=== PATIENT | female | born 1980 | race Caucasian/White ===

== ENCOUNTER 2016-08-01 08:42 | Inpatient (IN) | payer OTHER ==
[~2016-08-01] VITALS: Ht 162.6 cm; Wt 88.0 kg
[~2016-08-01 08:42] MED LIST: IBUPROFEN800 MG PO; PERCOCET 325 MG1 TA2 PO
[2016-08-01 09:19] LABS: ABSOLUTE BASOPHIL COUNT 0 /CUMM (0.0-0.2); ABSOLUTE EOSINOPHIL COUNT 0.1 /CUMM (0.0-0.7); ABSOLUTE GRANULOCYTE CT 5.7 /CUMM (1.4-6.5); ABSOLUTE LYMPH COUNT 3.1 /CUMM (1.2-3.4); ABSOLUTE MONOCYTE COUNT 0.6 /CUMM (0.10-0.60); BASOPHIL % 0.3 % (0.0-2.0); EOSINOPHIL % 0.9 % (0-5); GRANULOCYTE % 59.7 % (42.2-75.2); HEMATOCRIT 33.9 % (37-47); MEAN CORPUSCULAR HGB 28.6 PG (27.0-31.0); MEAN CORPUSCULAR HGB CONC 33.5 G/DL (33.0-37.0); MEAN CORPUSCULAR VOLUME 85.4 FL (81.0-99.0); MEAN PLATELET VOLUME 8.3 FL (7.4-10.4); PLATELET COUNT 245 /CUMM (130-400); RBC DISTRIBUTION WIDTH 15.1 % (11.5-14.5); RED BLOOD CELL CT 3.97 /CUMM (4.20-5.40); WHITE BLOOD CELL COUNT 9.6 /CUMM (4.8-10.8)
[2016-08-01 09:43] VITALS: BP 117/63
[2016-08-01] MEDS ORDERED: PRENATABS RX T1 EACH PO (09:44)
--- NOTE | 2016-08-01 10:54 | History & Physical ---
General Information and HPI MD Statement: I have seen and personally examined SUZIE LOPEZ and documented this H&P. The patient is a 35 year old female at [41] weeks and [2] days gestation who presented with a chief complaint of [post dates induction]. Source of Information: patient, old records Exam Limitations: no limitations History of Present Illness: 31 yo LMP 10/17/2015 and TAPAN of 07/23/2016 presents at 41 weeks 2/7 days for induction of labor. 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 1 oz. 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 Home Who Do You Live With? spouse, child, self Smoking Status: Former Smoker ETOH Use: denies use Illicit Drug Use: denies illicit drug use Review of Systems Review of Systems: Currently negative for cardiac pulmonary GI complaints Exam & Diagnostic Data Last 24 Hrs of Vital Signs/I&O Vital Signs Date Time Temp Pulse Resp B/P Pulse O2 O2 Flow FiO2 Ox Delivery Rate 08/01 0943 98.6 78 16 117/63 99% RA Intake & Output 08/01 1600 08/01 0800 08/01 0000 Intake Total Output Total Balance Patient 194 lb Weight Obstetric Exam Wgt Gained During : 5 Pelvimetry: Proven 7 lbs. 11 oz. Dilation (cm): 4 Effacement (%): 80 Station: -1 Membranes: intact Fluid: unknown Fundal Height (cm): 39 Multiple Gestation? No Contractions: None presently Infant #1 - FHR Baseline: 124 Category: 1 Estimated Weight: 8 lbs. 4 oz. Presentation: Vertex Patient for Induction? Yes Holliday Score Holliday Score Response Value Cervix Position: posterior 0 Cervix Consistency: soft 2 Cervix Effacement: >80% 3 Cervix Dilation: 3-4 cm 2 Cervix Station: -1 2 Total 9 Physical Exam General Appearance Alert, Oriented X3, Cooperative, No Acute Distress Skin No Rashes HEENT Atraumatic Neck Supple, No JVD Cardiovascular Regular Rate, Normal S1, Normal S2 Lungs Normal Air Movement Abdomen Normal Bowel Sounds, Soft, No Tenderness, No Hepatospenomegaly, fundal height 39 cm's, weight 8 lbs. 4 oz. heart rate 120s category 1 no palpable contractions Neurological Normal Gait, Normal Speech Extremities No Clubbing, No Cyanosis Reproductive (FEMALE) Normal female genitalia Labs Blood Type & Rh: O+ Antibody Screen: Negative Hct/Hgb & Platelets #1: 12.4/38.8 platelet count 349,000 Hct/Hgb & Platelets #2: 11.2/34.8 platelet count 235,000 Rubella: Immune VDRL #1: Negative VDRL #2: Negative HbsAg: Negative HIV #1: Negative HIV #2 Negative 1 Hr P 3 Hr PG: Not applicable Group B Strep: Negative Initial Ultrasound: Initial ultrasound 12/15/2015 single intrauterine 8 pounds 3 days TAPAN of 07/23/2016 Anatomy Ultrasound: 03/05/2020 1620 weeks 0/7 days normal anatomy negative aneuploidy scan, Ultrasound for EFW: 07/10/2016 41st percentile 6 pounds 15 ounces Genetic Testing: Patient declined first trimester screen declined maternal serum AFP. Also declined second trimester screening declined CVS and amniocentesis. With her anatomy scan at [facility] a 20 week she had a negative aneuploidy screen Last 24 Hrs of Labs/Epifanio: Laboratory Tests 08/01/16 0904: CBC w Diff NO MAN DIFF REQ, RBC 3.97 L, MCV 85.4, MCH 28.6, RDW 15.1 H, MPV 8.3, Gran % 59.7, Lymphocytes % 32.6, Monocytes % 6.5, Eosinophils % 0.9, Basophils % 0.3, Absolute Granulocytes 5.7, Absolute Lymphocytes 3.1, Absolute Monocytes 0.6, Absolute Eosinophils 0.1, Absolute Basophils 0, PUBS MCHC 33.5, Urinalysis MOD H, Urine Color YEL, Urine Clarity HAZY H, Urine pH 6.5, Ur Specific [place] 1.025, Urine Protein TRACE H, Urine Ketones NEG, Urine Nitrite NEG, Urine Bilirubin NEG, Urine Urobilinogen 0.2, Ur Leukocyte Esterase NEG, Ur Microscopic SEDIMENT EXAMINED, Urine RBC RARE, Urine WBC 1-3 H, Ur Epithelial Cells MOD H, Urine Crystals 1+ CA OX H, Urine Mucus FEW, Urine Hemoglobin NEG, Urine Glucose NEG Assessment/Plan Assessment/Plan: Intrauterine at 41-2/7 weeks with advanced cervical dilatation who is here for postdates induction. Plan is to have the patient adequately hydrated intravenously, and have epidural placed and then proceed with Pitocin induction with a AROM of fluid As Ranked By This Provider Problem List: 1. 2. Advanced maternal age (AMA) in Core Measures/Miscellaneous Venous Thromboembolism VTE Risk Factors: / VTE Contraindications: Active Bleeding (FALL RISK) VTE Prophylaxis Ordered Inpt: Early Ambulation VTE Diagnosis: No Beta Sophie Is Beta Sophie a Home Med? No If No, Why Not? NOT CLINICALLY INDICATED Antibiotics Is Patient on Antibiotics? No Attending MD Review Statement Attending Statement Attending MD Statement: examined this patient, discussed with family, discussed w/nursing Attending Assessment/Plan: Genesis Coe MD
--- NOTE | 2016-08-01 12:05 | PN- OBGYN ---
Surgical Brief Attending Note Brief Attending Note: Pt is status post placement of her epidural. She is presently quite comfortable. Afebrile normal vital signs heart rate baseline 110-120 good variability category 1 with excellent accelerations Spontaneous contractions every 5-7 minutes Cervical exam patient is 4-580% 0 to -1 AROM of clear fluid at 11:53 on 08/01/2016 Assessment is at 41-2/7 days with advanced cervical dilation is here for induction of labor. Her beta strep test is negative. She is now status post epidural and now AROM of clear fluid. Plan is to start low-dose Pitocin if patient has not had onset of a reasonable contraction pattern within an hour after AROM Saravanan Ending Dictation
--- NOTE | 2016-08-01 16:21 | Labor & Delivery Summary ---
Delivery Summary Vaginal Delivery: Vaginal: NORMAL SPONTANEOUS VAGINAL DELIVERY Episiotomy/Lacerations: Episiotomy/Lacerations: LACERATIONS SECOND-DEGREE MIDLINE Type: Second-degree midline Repair: 3-0 Vicryl Anesthesia: Epidural and local anesthetic Placenta: Placenta: spontanteous, normal, 3 vessel Anesthesia: epidural Cord PH Value: Not applicable Baby's Weight: Live viable female infants 7 lbs. 4 oz., 3290 g Baby's name is Skye Apgars - 1 Min: 8 Apgars - 5 Min: 9 Additional Comments: Patient had AROM at 1153 of clear fluid as a postdates induction. Initial cervical exam was 4 and has TMs dilated 80% -1 station. Around 1400 with irregular contractions low-dose Pitocin was started. On only 2 mU dosage patient developed tachysystole so the Pitocin was stopped at 1445. Patient was found to be fully dilated at 15:00. With pushing patient easily had a normal spontaneous vaginal delivery of a live viable female over a second-degree midline laceration at 15:07. weight 7 lbs. 4 oz. 3290 g Apgars 8, 9 and 9. Baby was placed skin to skin on the mother immediately following delivery. After a 30 second delay the cord was clamped and cut by the baby's father Second-degree laceration was easily repaired with 3-0 Vicryl with additional local anesthetic utilized. Placenta was spontaneously delivered intact normal configuration 3 vessel cord at 1539. No vaginal or cervical lacerations noted. Rh+ immune Skye Coe MD
[2016-08-02 08:09] LABS: ABSOLUTE BASOPHIL COUNT 0.1 /CUMM (0.0-0.2); ABSOLUTE EOSINOPHIL COUNT 0.1 /CUMM (0.0-0.7); ABSOLUTE GRANULOCYTE CT 6.1 /CUMM (1.4-6.5); ABSOLUTE LYMPH COUNT 4.3 /CUMM (1.2-3.4); ABSOLUTE MONOCYTE COUNT 0.6 /CUMM (0.10-0.60); BASOPHIL % 0.6 % (0.0-2.0); EOSINOPHIL % 0.7 % (0-5); GRANULOCYTE % 54.7 % (42.2-75.2); HEMATOCRIT 32.5 % (37-47); MEAN CORPUSCULAR HGB CONC 34.2 G/DL (33.0-37.0); MEAN CORPUSCULAR VOLUME 84.9 FL (81.0-99.0); MEAN PLATELET VOLUME 8.8 FL (7.4-10.4); PLATELET COUNT 227 /CUMM (130-400); RBC DISTRIBUTION WIDTH 14.7 % (11.5-14.5); RED BLOOD CELL CT 3.82 /CUMM (4.20-5.40); WHITE BLOOD CELL COUNT 11.2 /CUMM (4.8-10.8)
--- NOTE | 2016-08-02 10:16 | PN- OBGYN ---
Surgical Brief Attending Note Brief Attending Note: no complaints. doing well. ambulating , voiding, tolerating pain and po. + nursing. appropriate lochia vss general: NAD FF@U ext: no calf tenderness, 1+ pedal edema Laboratory Tests 08/02/16 0610: CBC w Diff NO MAN DIFF REQ, RBC 3.82 L, MCV 84.9, MCH 29.0, RDW 14.7 H, MPV 8.8, Gran % 54.7, Lymphocytes % 38.8, Monocytes % 5.2, Eosinophils % 0.7, Basophils % 0.6, Absolute Granulocytes 6.1, Absolute Lymphocytes 4.3 H, Absolute Monocytes 0.6, Absolute Eosinophils 0.1, Absolute Basophils 0.1, PUBS MCHC 34.2 08/01/16 0904: CBC w Diff NO MAN DIFF REQ, RBC 3.97 L, MCV 85.4, MCH 28.6, RDW 15.1 H, MPV 8.3, Gran % 59.7, Lymphocytes % 32.6, Monocytes % 6.5, Eosinophils % 0.9, Basophils % 0.3, Absolute Granulocytes 5.7, Absolute Lymphocytes 3.1, Absolute Monocytes 0.6, Absolute Eosinophils 0.1, Absolute Basophils 0, PUBS MCHC 33.5, Urinalysis MOD H, Urine Color YEL, Urine Clarity HAZY H, Urine pH 6.5, Ur Specific [place] 1.025, Urine Protein TRACE H, Urine Ketones NEG, Urine Nitrite NEG, Urine Bilirubin NEG, Urine Urobilinogen 0.2, Ur Leukocyte Esterase NEG, Ur Microscopic SEDIMENT EXAMINED, Urine RBC RARE, Urine WBC 1-3 H, Ur Epithelial Cells MOD H, Urine Crystals 1+ CA OX H, Urine Mucus FEW, Urine Hemoglobin NEG, Urine Glucose NEG Microbiology 08/01 1237 URINE ROUT: Urine Culture - RES ppd 1. Doing well. Routine care. anticipate dc in am.
[2016-08-03] MEDS ORDERED: IBUPROFEN800 M1 PO (12:00)
[2016-08-03] MEDS ORDERED: PERCOCET 5-3251 EACH PO (12:15)
--- NOTE | 2016-08-03 12:51 | PN- Post Delivery/GYN ---
Subjective Subjective: DOING WELL - Ready for discharge. Has increased PP cramping and requested a small # of percocet tabs fro @ home- agreed to Rx 10 tabs Review of Systems: Neg for cardiac pulmonary GI complaints Objective Last 24 Hrs of Vital Signs/I&O Afeb VSS Physical Exam General Appearance Alert, Oriented X3, Cooperative, No Acute Distress Cardiovascular Regular Rate Lungs Normal Air Movement Abdomen Normal Bowel Sounds, Soft, No Tenderness, No Hepatospenomegaly Neurological Normal Gait, Normal Speech Extremities No Tenderness/Swelling Reproductive (FEMALE) Normal female genitalia Current Medications: Current Medications Sig/Paige Start time Last Medication Dose Route Stop Time Status Admin Acetaminophen 650 MG .STK-MED ONE 08/03 0005 DC PO 08/03 0006 Acetaminophen 650 MG .STK-MED ONE 08/02 1455 DC PO 08/02 1456 Acetaminophen 650 MG Q4P PRN 08/01 1630 AC 08/03 PO 0008 Docusate Sodium 100 MG BID PRN 08/01 1630 AC PO Hydroxyzine HCl 100 MG AT BEDTIME NEED.. 08/01 1630 AC PO Ibuprofen 800 MG .STK-MED ONE 08/03 0004 DC PO 08/03 0005 Ibuprofen 800 MG .STK-MED ONE 08/02 1833 DC PO 08/02 1834 Ibuprofen 800 MG Q6P PRN 08/01 1630 AC 08/03 PO 0826 Oxycodone/ 1 TAB Q3P PRN 08/01 1630 AC 08/02 Acetaminophen PO 0624 Assessment/Plan Assessment/Plan Stable PPD # 2 Plan D/c home. PP instructions Problem List: 1. 2. Advanced maternal age (AMA) in 3. Term of female Attending MD Review Statement Attending Statement Attending MD Statement: examined this patient, discussed with family, discussed with nursing
== END 2016-08-03 12:50 | DRG 775 ==
LOC: GNO 08:42
PROVIDERS: ADMIT Obstetrics & Gynecology
PROC: 0KQM0ZZ Repair Perineum Muscle, Open Approach (ICD-10-PCS; principal; 2016-08-01)
PROC: 10E0XZZ Delivery of Products of Conception, External Approach (ICD-10-PCS; principal; 2016-08-01)
PROC: 3E033VJ Introduction of Other Hormone into Peripheral Vein, Percutaneous Approach (ICD-10-PCS; 2016-08-01)
PROC: 10907ZC Drainage of Amniotic Fluid, Therapeutic from Products of Conception, Via Natural or Artificial Opening (ICD-10-PCS; 2016-08-01)
DX: O48.0 Post-term pregnancy (principal); O09.523 Supervision of elderly multigravida, third trimester; Z3A.41 41 weeks gestation of pregnancy; O70.1 Second degree perineal laceration during delivery; Z37.0 Single live birth
CPT/HCPCS: GNOS; 36415; 81001; 87086; J1885; J2210; J7120

== ENCOUNTER 2017-12-16 10:39 | Emergency (ER) | payer OTHER ==
[~2017-12-16] VITALS: Ht 162.6 cm; Wt 81.6 kg
[~2017-12-16 10:39] MED LIST changes: +BACTRIM DS TAB1 EACH PO; +CEPHALEXIN250 MG/51 PO; +IBUPROFEN800 M1 PO; +PERCOCET 5-3251 EACH PO; +PRENATABS RX T1 EACH PO
[2017-12-16 10:43] VITALS: BP 148/86
--- NOTE | 2017-12-16 13:26 | RADIOLOGY REPORT ---
EXAMINATION: XR SHOULDER, LEFT CLINICAL INFORMATION: Pain COMPARISON: None TECHNIQUE: Three views of the left shoulder. FINDINGS: There is no evidence of fracture or dislocation. Soft tissue calcification adjacent to the humeral head is diagnostic for calcific tendinitis of the rotator cuff. IMPRESSION: Calcific tendinitis.
[2017-12-16] MEDS ORDERED: LIDODERM1 EACH TOP (13:33)
--- NOTE | 2017-12-16 13:34 | ED GENERAL ADULT ---
History of Present Illness General Chief Complaint: Shoulder Injury Stated Complaint: LEFT SHOULDER PAIN Source: patient Exam Limitations: no limitations Vital Signs & Intake/Output Vital Signs & Intake/Output Vital Signs Date Time Temp Pulse Resp B/P B/P Pulse O2 O2 Flow FiO2 Mean Ox Delivery Rate 12/16 1043 97.4 100 20 148/86 98 Room Air Allergies Coded Allergies: No Known Allergies (08/01/16) Reconcile Medications Cephalexin 250 MG/5 ML SUSP.RECON 5 ML PO TID ANTIBIOTIC, INFECTION (Reported ) Ibuprofen 800 MG TABLET 800 MG PO Q6P PRN UTERINE CRAMPING Lidocaine (Lidoderm) 5 % ADH..PATCH 1 PAT TOP DAILY PRN PAIN may wear up to 12 hours Oxycodone HCl/Acetaminophen (Percocet 5-325 MG Tablet) 5 MG-325 MG TABLET 1 TAB PO BID PRN PAIN Sulfamethoxazole/Trimethoprim (Bactrim Ds Tablet) 800 MG-160 MG TABLET 1 TAB PO BID CELLULITIS Triage Note: PT TO ED C/O LEFT SHOULDER/LEFT NECK/LEFT ARM PAIN X 1 WEEK. DENIES OBVIOUS INJURY. HAS TRIED MOTRIN WITH SOME RELIEF. DECLINING MEDS IN TRIAGE. Triage Nurses Notes Reviewed? yes Onset: Gradual Duration: day(s): Timing: constant : No Patient currently breastfeeds: No HPI: 36 y/o female with a h/o asthma and depression presenting with atraumatic left shoulder pain x1 week. Reports pain is worse with movement and has been gradually worsening. Has been using motrin without relief. No with limited ROM. Denies numbness or paresthesias. (Ana Dumont) Past History Travel History Traveled to [place] past 21 day No Medical History Any Pertinent Medical History? 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 No (Ana Dumont) Review of Systems Review of Systems Constitutional: Reports: no symptoms. EENTM: Reports: no symptoms. Respiratory: Reports: no symptoms. Cardiovascular: Reports: no symptoms. GI: Reports: no symptoms. Genitourinary: Reports: no symptoms. Musculoskeletal: Reports: see HPI. Skin: Reports: no symptoms. Neurological/Psychological: Reports: no symptoms. Hematologic/Endocrine: Reports: no symptoms. Immunologic/Allergic: Reports: no symptoms. (Ana Dumont) Physical Exam Physical Exam General Appearance: well developed/nourished, no apparent distress, alert, awake , comfortable Head: atraumatic, normal appearance Eyes: Bilateral: normal appearance. Neck: normal inspection, full range of motion, no midline tenderness Respiratory: normal breath sounds, lungs clear Cardiovascular: regular rate/rhythm Gastrointestinal: soft, non-tender Back: normal inspection, no vertebral tenderness Extremities: on exam of the left shoulder there is no edema, erythema, or signs of trauma. TTP over the anterior shoulder. Decreased ROM in all directions. Sensation intact. Decreased motor strength at the shoulder, 5/5 at the elbow. Radial pulse 2+. Neurologic/Psych: awake, alert, oriented x 3, normal gait, normal mood/affect Skin: intact, normal color, warm/dry Core Measures ACS in differential dx? No CVA/TIA Diagnosis: No Sepsis Present: No Sepsis Focused Exam Completed? No (Ana Dumont) Progress Differential Diagnoses I considered the following diagnoses in my evaluation of the patient: [ tendonitis vs OA vs bursitis vs fx] Plan of Care: Orders Procedure Date/time Status URINE 12/16 1139 Complete Laboratory Tests 12/16/17 1145: Urine Test NEGATIVE X-ray showed calcific tendonitis. Given rx lidoderm and ortho f/u. Counseled on supportive care and strict return precautions. Initial ED EKG: none (Ana Dumont) Departure Departure Disposition: HOME OR SELF CARE Condition: Stable Clinical Impression Primary Impression: Calcific tendonitis of left shoulder Referrals: Rosita CHAVES,Ayaan Pineda Patient Has No Primary Care Dr (PCP/Family) Additional Instructions: Use lidoderm patches and ibuprofen as needed for pain. Follow up with orthopedics for re-evaluation. Return to the emergency department for any new or worsening symptoms. Departure Forms: Customer Survey General Discharge Information Prescriptions: Current Visit Scripts Lidocaine (Lidoderm) 1 PAT TOP DAILY PRN PAIN #30 PAT may wear up to 12 hours (Ana Dumont) PA/BIOLOGICAL SCIENCES INSTRUCTOR Co-Sign Statement Statement: ED Attending supervision documentation- I saw and evaluated the patient. I have also reviewed all the pertinent lab results and diagnostic results. I agree with the findings and the plan of care as documented in the PA's/BIOLOGICAL SCIENCES INSTRUCTOR's documentation. x I have reviewed the ED Record and agree with the PA's/BIOLOGICAL SCIENCES INSTRUCTOR's documentation. [] Additions or exceptions (if any) to the PAs/BIOLOGICAL SCIENCES INSTRUCTOR's note and plan are summarized below: [] (Ji CHAVES,Demarcus) Critical Care Note Critical Care Note Critical Care Time: non-applicable (Ana Dumont)
== END 2017-12-16 13:38 ==
LOC: ERH 10:39
DX: M75.32 Calcific tendinitis of left shoulder (principal)
CPT/HCPCS: 73030-LT; 81025